=== PATIENT | male | born 1995 | race African-American/Black ===

== ENCOUNTER 2018-10-16 11:36 | Emergency (ER) | payer MEDICAID, OTHER ==
[~2018-10-16] VITALS: Ht 172.7 cm; Wt 104.3 kg
[2018-10-16 11:50] VITALS: BP 158/92
[2018-10-16] MEDS ORDERED: KETOROLAC TROMETH 60MG/2ML VIAL IM ONE (12:15)
== END 2018-10-16 12:58 | disposition home or self-care (01) ==
LOC: ER 11:36
DX: M54.42 Lumbago with sciatica, left side (principal)
CPT/HCPCS: 96372; 99283; J1885